=== PATIENT | male | born 1990 | race African-American/Black ===

== ENCOUNTER 2018-06-23 10:19 | Emergency (ER) | payer SELFPAY ==
[2018-06-23 10:37] VITALS: BP 131/72
[2018-06-23] MEDS ORDERED: KETOROLAC TROMETHAMINE 60 MG/2 ML SDV IM ONE (11:04)
--- NOTE | 2018-06-23 11:19 | ER Document Report ---
ED General - General Chief Complaint: Toothache Stated Complaint: TOOTH PAIN Time Seen by Provider: 06/23/18 10:59 Mode of Arrival: Ambulatory Information source: Patient Notes: 27-year-old male presents emergency department with complaints of dental pain for the last week. Patient states that it has been constant. He states that it is located at tooth #16. He describes it as a throbbing sensation. No radiation of the pain. He has tried Motrin and Orajel without relief of symptoms. No exacerbating factors. Patient contacted the dentist but the office is closed. He did did leave a message to schedule an appointment. He denies any fever, chills, difficulty breathing, difficulty swallowing. TRAVEL OUTSIDE OF THE [place] IN LAST 30 DAYS: No - HPI Onset: Last week Onset/Duration: Sudden Quality of pain: Achy Associated symptoms: None Exacerbated by: Denies Relieved by: Denies Similar symptoms previously: No Recently seen / treated by doctor: No - Related Data Allergies/Adverse Reactions: No Known Allergies Allergy (Unverified 06/23/18 10:20) Past Medical History - Social History Smoking Status: Never Smoker Family History: Reviewed & Not Pertinent Review of Systems - Review of Systems Constitutional: No symptoms reported EENT: Dental problem Cardiovascular: No symptoms reported Respiratory: No symptoms reported Gastrointestinal: No symptoms reported Genitourinary: No symptoms reported Musculoskeletal: No symptoms reported Skin: No symptoms reported Neurological/Psychological: No symptoms reported -: Yes All other systems reviewed and negative Physical Exam - Vital signs Vitals: Temp Pulse Resp BP Pulse Ox 98.8 F 57 L 16 131/72 H 99 06/23/18 10:36 06/23/18 10:36 06/23/18 10:36 06/23/18 10:36 06/23/18 10:36 - Notes Notes: PHYSICAL EXAMINATION: GENERAL: Well-appearing, well-nourished and in no acute distress. HEAD: Atraumatic, normocephalic. EYES: Pupils equal round and reactive to light, extraocular movements intact, sclera anicteric, conjunctiva are normal. ENT: Nares patent, oropharynx clear without exudates. Uvula midline. No peritonsillar swelling. Moist mucous membranes. Tooth number 16 pain. No fracture seen. No dental caries. No fluctuance appreciated. No trismus. NECK: Normal range of motion, supple without lymphadenopathy LUNGS: Breath sounds clear to auscultation bilaterally and equal. No wheezes rales or rhonchi. HEART: Regular rate and rhythm without murmurs Musculoskeletal: Normal range of motion, no pitting or edema. No cyanosis. NEUROLOGICAL: Cranial nerves grossly intact. Normal speech, normal gait. Normal sensory, motor exams PSYCH: Normal mood, normal affect. SKIN: Warm, Dry, normal turgor, no rashes or lesions noted. Course - Vital Signs Vital signs: Temp Pulse Resp BP Pulse Ox 98.8 F 57 L 16 131/72 H 99 06/23/18 10:36 06/23/18 10:36 06/23/18 10:36 06/23/18 10:36 06/23/18 10:36 Discharge - Discharge Clinical Impression: Pain, dental Condition: Good Disposition: HOME, SELF-CARE Instructions: Toothache ([facility]) Prescriptions: Penicillin V Potassium [Penicillin Vk 500 mg Tablet] 500 mg PO QID #40 tablet Referrals: JACKY CULLEN MD [ACTIVE STAFF] - Follow up as needed
== END 2018-06-23 11:53 | disposition home or self-care (01) ==
LOC: ER 10:19
DX: K08.89 Other specified disorders of teeth and supporting structures (principal)
CPT/HCPCS: 99282; 96372; J1885